=== PATIENT | male | born 1965 | race Caucasian/White ===

== ENCOUNTER 2016-06-24 20:59 | Emergency (ER) | payer BC ==
[2016-06-24] MEDS ORDERED: ACETAMINOPHEN/CODEINE #3 TABLET (BULK) As Ordered ONE (22:54)
--- NOTE | 2016-06-24 23:05 | EDDOCDS ---
Nurse's Notes [facility] Name: Gagandeep Quesada Age: 50 yrs Sex: Male : 1965 Arrival Date: 06/24/2016 Time: 20:59 Bed PR Private MD: Alex Fuller A. Diagnosis: Intercostal pain;Cough Presentation: 06/24 21:04 Presenting complaint: Patient states: left lung pain, aggravated by coughing x 1 week. af2 Adult Sepsis Screening: The patient does not have new or worsening altered mentation. Patient's respiratory rate is less than 22. Systolic blood pressure is greater than 100. Patient has a qSOFA score of 0- Negative Sepsis Screen. Suicide/Homicide risk assessment- the patient denies having any suicidal and/or homicidal ideations and does not present with any other emotional, behavioral or mental health complaints. Status: Patient is not a director dental services or dependent. Transition of care: patient was not received from another setting of care. 21:04 Acuity: JUSTIN Level 4 af2 21:04 Method Of Arrival: Walkin/Carried/Asstd af2 Triage Assessment: 21:06 General: Appears in no apparent distress, Behavior is cooperative. Pain: Location: Left af2 lung Pain currently is 8 out of 10 on a pain scale. Pt Declines HIV testing. Respiratory: Airway is patent Respiratory effort is even, unlabored, Reports cough that is non-productive. Historical: - Allergies: No known drug Allergies; - Home Meds: 1. Unknown - PMHx: none; - PSHx: Appendectomy; Hernia repair- Left inguinal; Hernia repair- Right inguinal; - Social history: Smoking status: Patient states was never smoker of tobacco. No barriers to communication noted, The patient speaks fluent Yoruba. - Family history: No immediate family members are acutely ill. - : The pt / caregiver states he / she is not on anticoagulants. Home medication list is obtained from the patient. - Exposure Risk Screening:: None identified. Screenin:01 Screening information is obtained from the patient. Fall risk: No risks identified. kmg1 Assistance ADL's: requires no assistance with activities of daily living. Abuse/DV Screen: The patient / caregiver reports he/she is: not in a situation that causes fear, pain or injury. Nutritional screening: No deficits noted. Advance Directives: There is no active DNR order. home support is adequate. Assessment: 23:01 General: Appears in no apparent distress, comfortable, Behavior is appropriate for age, kmg1 cooperative, pleasant. Pain: Location: ribs Pain currently is 7 out of 10 on a pain scale. Quality of pain is described as sharp. Respiratory: Airway is patent Respiratory effort is even, unlabored, Respiratory pattern is regular, symmetrical, Reports cough that is pain with cough. Vital Signs: 21:01 BP 143 / 90; Pulse 82; Resp 18; Pulse Ox 98% ; Weight 68.04 kg; Height 5 ft. 5 in. elp (165.10 cm); Pain 8/10; 22:37 BP 140 / 93 LA Sitting (auto/reg); Pulse 83 MON; Resp 20 S; Temp 97.6(TE); Pulse Ox 98% cln on R/A; Pain 7/10; 21:01 Body Mass Index 24.96 (68.04 kg, 165.10 cm) elp Vitals: 21: Log In Time: June 24, 2016 at 21:00. elp ED Course: 21:01 Patient visited by Lisa Henning PCA. elp 21:01 Alex Fuller is Private Physician. elp 21:01 Patient moved to Waiting elp 21:03 Patient visited by Lisa Henning PCA. elp 21:03 Patient moved to Pre RCE elp 21:04 Triage Initiated af2 21:07 Patient visited by Luana Lagunas RN. af2 21:13 Patient moved to Triage 2 kmg1 21:51 [facility] cc10 21:51 Ross Painter DO is Attending Physician. cc10 21:51 Patient visited by Massimo Rodriguez PA-C. cc10 21:51 Patient visited by Massimo Rodriguez PA-C. cc10 22:03 Patient moved to TR1 mb9 22:23 [facility] Payment Agreement was scanned into [employer] and attached to record. gjb 22:33 Patient moved to PR1 / 25 cln 22:38 Patient visited by Jazzmine Easton PCA. cln 22:44 Alex Fuller is Referral Physician. cc10 23:01 The patient / caregiver is instructed regarding the plan of care and ED course. kmg1 23:01 No IV's were initiated during this patient's visit. No procedures done that require kmg1 assistance. Order Results: There are currently no results for this order. Outcome: 22:44 Discharge ordered by Provider. cc10 23:01 Discharge Assessment: Patient awake, alert and oriented x 3. No cognitive and/or kmg1 functional deficits noted. Patient verbalized understanding of disposition instructions. Patient awake and alert. patient administered narcotics - no. The following High Risk Discharge criteria are identified: None. Discharged to home ambulatory. Condition: stable. Discharge instructions given to patient, Instructed on discharge instructions, follow up and referral plans. medication usage, no driving heavy equipment, Demonstrated understanding of instructions, medications, Pt was receptive of discharge instructions/ teaching. Prescriptions given X 2. No special radiology studies were completed. Property sent home with patient. 23:04 Patient left the ED. km Signatures: Dilcia Carvalho, RN RN kmg1 Lisa Henning, HYDRAULIC CONTROLS TECHNICIAN HYDRAULIC CONTROLS TECHNICIAN elp Massimo Rodriguez, PA-C PA-C cc10 Reuben Person,RN RN mb9 Luana Lagunas,RN RN af2 Traci Hooks Crystal, HYDRAULIC CONTROLS TECHNICIAN HYDRAULIC CONTROLS TECHNICIAN cln [facility]PITALBrittaney
--- NOTE | 2016-06-24 23:05 | EDDOCDS ---
Physician Documentation [facility] Name: Gagandeep Quesada Age: 50 yrs Sex: Male : 1965 Arrival Date: 06/24/2016 Time: 20:59 Bed PR Private MD: Alex Fuller A. Disposition: 06/24/16 22:44 Discharged to Home/Self Care. Impression: Intercostal pain, Cough. - Condition is Stable. - Discharge Instructions: Costochondritis, Cough, Adult. - Prescriptions for Cheratussin AC 10- 100 mg/5 mL Oral liquid - take 10 milliliter by ORAL route every 6 hours As needed MDD: 40 ML; 200 milliliter. Naprosyn 500 mg Oral Tablet - take 1 tablet by ORAL route 2 times per day take with food; 30 tablet. - Medication Reconciliation, Local Pharmacy Hours form. - Follow up: Emergency Department; When: As needed; Reason: Worsening of conditions. Follow up: Alex Fuller; When: 2 - 3 days; Reason: Wound/Symptom Recheck, Recheck today's complaints, Worsening of conditions, Continuance of care. - Problem is an ongoing problem. - Symptoms are unchanged. Historical: - Allergies: No known drug Allergies; - Home Meds: 1. Unknown - PMHx: none; - PSHx: Appendectomy; Hernia repair- Left inguinal; Hernia repair- Right inguinal; - Social history: Smoking status: Patient states was never smoker of tobacco. No barriers to communication noted, The patient speaks fluent Maori. - Family history: No immediate family members are acutely ill. - : The pt / caregiver states he / she is not on anticoagulants. Home medication list is obtained from the patient. - Exposure Risk Screening:: None identified. Vital Signs: 06/24 21:01 BP 143 / 90; Pulse 82; Resp 18; Pulse Ox 98% ; Weight 68.04 kg / 150 lbs; Height 5 ft. elp 5 in. (165.10 cm); Pain 8/10; 22:37 BP 140 / 93 LA Sitting (auto/reg); Pulse 83 MON; Resp 20 S; Temp 97.6(TE); Pulse Ox 98% cln on R/A; Pain 7/10; 21:01 Body Mass Index 24.96 (68.04 kg, 165.10 cm) elp MDM: 21:58 Chest, 2 View (pa\E\lat) Ordered. EDMS 22:23 [facility] Payment Agreement was scanned into [employer] and attached to record. lin 22:23 Financial registration complete. gjdenise 22:43 Acetaminophen-Codeine, 4 pack- 300 mg-30 mg 1 packets PO once; Dispense with patient. cc10 Take per package instructions. ordered. Signatures: Dispatcher [employer] EDMS Dilcia Carvalho, RN RN kmg1 Massimo Rodriguez, PA-C PA-C cc10 Luana LagunasRN RN af2 Traci Hooks The chart was reviewed and I authenticate all verbal orders and agree with the evaluation and treatment provided.Attachments: 22:23 [facility] Payment Agreement lin MTDD
--- NOTE | 2016-06-25 08:41 | REP ---
Clinical: Cough . Comparison: Technique: PA and lateral. Findings: The mediastinum and cardiac silhouette are normal. The lung portillo are clear and without acute consolidation, effusion, or pneumothorax. The skeletal structures are intact and normal. Impression: 1. No acute cardiopulmonary process. Signed by Marcus Whitman MD 06/25/2016 08:32 A
--- NOTE | 2016-06-27 00:05 | EDDOCDS ---
Physician Documentation [facility] Name: Gagandeep Quesada Age: 50 yrs Sex: Male : 1965 Arrival Date: 06/24/2016 Time: 20:59 Bed PR Private MD: Alex Fuller A. Disposition: 06/24/16 22:44 Discharged to Home/Self Care. Impression: Intercostal pain, Cough. - Condition is Stable. - Discharge Instructions: Costochondritis, Cough, Adult. - Prescriptions for Cheratussin AC 10- 100 mg/5 mL Oral liquid - take 10 milliliter by ORAL route every 6 hours As needed MDD: 40 ML; 200 milliliter. Naprosyn 500 mg Oral Tablet - take 1 tablet by ORAL route 2 times per day take with food; 30 tablet. - Medication Reconciliation, Local Pharmacy Hours form. - Follow up: Emergency Department; When: As needed; Reason: Worsening of conditions. Follow up: Alex Fuller; When: 2 - 3 days; Reason: Wound/Symptom Recheck, Recheck today's complaints, Worsening of conditions, Continuance of care. - Problem is an ongoing problem. - Symptoms are unchanged. Historical: - Allergies: No known drug Allergies; - Home Meds: 1. Unknown - PMHx: none; - PSHx: Appendectomy; Hernia repair- Left inguinal; Hernia repair- Right inguinal; - Social history: Smoking status: Patient states was never smoker of tobacco. No barriers to communication noted, The patient speaks fluent Uzbek. - Family history: No immediate family members are acutely ill. - : The pt / caregiver states he / she is not on anticoagulants. Home medication list is obtained from the patient. - Exposure Risk Screening:: None identified. Vital Signs: 06/24 21:01 BP 143 / 90; Pulse 82; Resp 18; Pulse Ox 98% ; Weight 68.04 kg / 150 lbs; Height 5 ft. elp 5 in. (165.10 cm); Pain 8/10; 22:37 BP 140 / 93 LA Sitting (auto/reg); Pulse 83 MON; Resp 20 S; Temp 97.6(TE); Pulse Ox 98% cln on R/A; Pain 7/10; 21:01 Body Mass Index 24.96 (68.04 kg, 165.10 cm) elp MDM: 21:58 Chest, 2 View (pa\E\lat) Ordered. EDMS 22:23 [facility] Payment Agreement was scanned into [employer] and attached to record. gjb 22:23 Financial registration complete. gjb 22:43 Acetaminophen-Codeine, 4 pack- 300 mg-30 mg 1 packets PO once; Dispense with patient. cc10 Take per package instructions. ordered. 06/25 11:20 T-Sheet-- Draft Copy was scanned into [employer] and attached to record. gb Administered Medications: 06/24 22:55 Drug: Acetaminophen-Codeine, 4 pack- 1 packets [acetaminophen 300 mg-codeine 30 mg kmg1 tablet (1 tabs)] {Co-Signature: af2 (Luana Lagunas RN).} Route: PO; Signatures: Dispatcher [employer] EDMS Dilcia Carvalho, RN RN kmg1 Ade Eason, Reg Reg gb Massimo Rodriguez, PA-C PA-C cc10 Luana Lagunas RN RN af2 Traci Hooks [facility] Luana Lagunas RN af2 The chart was reviewed and I authenticate all verbal orders and agree with the evaluation and treatment provided.Attachments: 22:23 [facility] Payment Agreement b 06/25 11:20 T-Sheet-- Draft Copy gb Chart Complete MTDD
--- NOTE | 2016-06-27 00:05 | EDDOCDS ---
Physician Documentation [facility] Name: Gagandeep Quesada Age: 50 yrs Sex: Male : 1965 Arrival Date: 06/24/2016 Time: 20:59 Bed PR Private MD: Alex Fuller A. Disposition: 06/24/16 22:44 Discharged to Home/Self Care. Impression: Intercostal pain, Cough. - Condition is Stable. - Discharge Instructions: Costochondritis, Cough, Adult. - Prescriptions for Cheratussin AC 10- 100 mg/5 mL Oral liquid - take 10 milliliter by ORAL route every 6 hours As needed MDD: 40 ML; 200 milliliter. Naprosyn 500 mg Oral Tablet - take 1 tablet by ORAL route 2 times per day take with food; 30 tablet. - Medication Reconciliation, Local Pharmacy Hours form. - Follow up: Emergency Department; When: As needed; Reason: Worsening of conditions. Follow up: Alex Fuller; When: 2 - 3 days; Reason: Wound/Symptom Recheck, Recheck today's complaints, Worsening of conditions, Continuance of care. - Problem is an ongoing problem. - Symptoms are unchanged. Historical: - Allergies: No known drug Allergies; - Home Meds: 1. Unknown - PMHx: none; - PSHx: Appendectomy; Hernia repair- Left inguinal; Hernia repair- Right inguinal; - Social history: Smoking status: Patient states was never smoker of tobacco. No barriers to communication noted, The patient speaks fluent Pashto. - Family history: No immediate family members are acutely ill. - : The pt / caregiver states he / she is not on anticoagulants. Home medication list is obtained from the patient. - Exposure Risk Screening:: None identified. Vital Signs: 06/24 21:01 BP 143 / 90; Pulse 82; Resp 18; Pulse Ox 98% ; Weight 68.04 kg / 150 lbs; Height 5 ft. elp 5 in. (165.10 cm); Pain 8/10; 22:37 BP 140 / 93 LA Sitting (auto/reg); Pulse 83 MON; Resp 20 S; Temp 97.6(TE); Pulse Ox 98% cln on R/A; Pain 7/10; 21:01 Body Mass Index 24.96 (68.04 kg, 165.10 cm) elp MDM: 21:58 Chest, 2 View (pa\E\lat) Ordered. EDMS 22:23 [facility] Payment Agreement was scanned into [employer] and attached to record. gjb 22:23 Financial registration complete. gjb 22:43 Acetaminophen-Codeine, 4 pack- 300 mg-30 mg 1 packets PO once; Dispense with patient. cc10 Take per package instructions. ordered. 06/25 11:20 T-Sheet-- Draft Copy was scanned into [employer] and attached to record. gb Administered Medications: 06/24 22:55 Drug: Acetaminophen-Codeine, 4 pack- 1 packets [acetaminophen 300 mg-codeine 30 mg kmg1 tablet (1 tabs)] {Co-Signature: af2 (Luana Lagunas RN).} Route: PO; Signatures: Dispatcher [employer] EDMS Dilcia Carvalho, RN RN kmg1 Ade Eason, Reg Reg gb Massimo Rodriguez, PA-C PA-C cc10 Luana Lagunas RN RN af2 Traci Hooks [facility] Luana Lagunas RN af2 The chart was reviewed and I authenticate all verbal orders and agree with the evaluation and treatment provided.Attachments: 22:23 [facility] Payment Agreement b 06/25 11:20 T-Sheet-- Draft Copy gb Chart Complete MTDD
--- NOTE | 2016-06-27 00:05 | EDDOCDS ---
Nurse's Notes [facility] Name: Gagandeep Quesada Age: 50 yrs Sex: Male : 1965 Arrival Date: 06/24/2016 Time: 20:59 Bed PR Private MD: Alex Fuller A. Diagnosis: Intercostal pain;Cough Presentation: 06/24 21:04 Presenting complaint: Patient states: left lung pain, aggravated by coughing x 1 week. af2 Adult Sepsis Screening: The patient does not have new or worsening altered mentation. Patient's respiratory rate is less than 22. Systolic blood pressure is greater than 100. Patient has a qSOFA score of 0- Negative Sepsis Screen. Suicide/Homicide risk assessment- the patient denies having any suicidal and/or homicidal ideations and does not present with any other emotional, behavioral or mental health complaints. Status: Patient is not a tire servicer or dependent. Transition of care: patient was not received from another setting of care. 21:04 Acuity: JUSTIN Level 4 af2 21:04 Method Of Arrival: Walkin/Carried/Asstd af2 Triage Assessment: 21:06 General: Appears in no apparent distress, Behavior is cooperative. Pain: Location: Left af2 lung Pain currently is 8 out of 10 on a pain scale. Pt Declines HIV testing. Respiratory: Airway is patent Respiratory effort is even, unlabored, Reports cough that is non-productive. Historical: - Allergies: No known drug Allergies; - Home Meds: 1. Unknown - PMHx: none; - PSHx: Appendectomy; Hernia repair- Left inguinal; Hernia repair- Right inguinal; - Social history: Smoking status: Patient states was never smoker of tobacco. No barriers to communication noted, The patient speaks fluent Arabic. - Family history: No immediate family members are acutely ill. - : The pt / caregiver states he / she is not on anticoagulants. Home medication list is obtained from the patient. - Exposure Risk Screening:: None identified. Screenin:01 Screening information is obtained from the patient. Fall risk: No risks identified. kmg1 Assistance ADL's: requires no assistance with activities of daily living. Abuse/DV Screen: The patient / caregiver reports he/she is: not in a situation that causes fear, pain or injury. Nutritional screening: No deficits noted. Advance Directives: There is no active DNR order. home support is adequate. Assessment: 23:01 General: Appears in no apparent distress, comfortable, Behavior is appropriate for age, kmg1 cooperative, pleasant. Pain: Location: ribs Pain currently is 7 out of 10 on a pain scale. Quality of pain is described as sharp. Respiratory: Airway is patent Respiratory effort is even, unlabored, Respiratory pattern is regular, symmetrical, Reports cough that is pain with cough. Vital Signs: 21:01 BP 143 / 90; Pulse 82; Resp 18; Pulse Ox 98% ; Weight 68.04 kg; Height 5 ft. 5 in. elp (165.10 cm); Pain 8/10; 22:37 BP 140 / 93 LA Sitting (auto/reg); Pulse 83 MON; Resp 20 S; Temp 97.6(TE); Pulse Ox 98% cln on R/A; Pain 7/10; 21:01 Body Mass Index 24.96 (68.04 kg, 165.10 cm) elp Vitals: 21: Log In Time: June 24, 2016 at 21:00. elp ED Course: 21:01 Patient visited by Lisa Henning PCA. elp 21:01 Alex Fuller is Private Physician. elp 21:01 Patient moved to Waiting elp 21:03 Patient visited by Lisa Henning PCA. elp 21:03 Patient moved to Pre RCE elp 21:04 Triage Initiated af2 21:07 Patient visited by Luana Lagunas RN. af2 21:13 Patient moved to Triage 2 kmg1 21:51 Massimo [facility] cc10 21:51 Ross Painter DO is Attending Physician. cc10 21:51 Patient visited by Massimo Rodriguez PA-C. cc10 21:51 Patient visited by Massimo Rodriguez PA-C. cc10 22:03 Patient moved to TR1 mb9 22:23 [facility] Payment Agreement was scanned into [employer] and attached to record. gjb 22:33 Patient moved to PR1 / 25 cln 22:38 Patient visited by Jazzmine Easton PCA. cln 22:44 Alex Fuller is Referral Physician. cc10 23:01 The patient / caregiver is instructed regarding the plan of care and ED course. kmg1 23:01 No IV's were initiated during this patient's visit. No procedures done that require km assistance. 06/25 09:00 Chest, 2 View (pa\E\lat) Returned. EDMN 11:20 T-Sheet-- Draft Copy was scanned into [employer] and attached to record. gb Administered Medications: 06/24 22:55 Drug: Acetaminophen-Codeine, 4 pack- 1 packets [acetaminophen 300 mg-codeine 30 mg kmg1 tablet (1 tabs)] {Co-Signature: af2 (Luana Lagunas RN).} Route: PO; Order Results: Radiology Order: Chest, 2 View (pa\E\lat) Test: Chest, 2 View (pa\E\lat) REASON FOR EXAMINATION: Cough; Clinical: Cough .; ; Comparison: ; ; Technique: PA and lateral.; ; Findings:; The mediastinum and cardiac silhouette are normal. The lung portillo are clear and; without acute consolidation, effusion, or pneumothorax. The skeletal structures; are intact and normal.; ; Impression:; 1. No acute cardiopulmonary process.; ; ; Signed by; Marcus Whitman MD 06/25/2016 08:32 A; Outcome: 22:44 Discharge ordered by Provider. cc10 23:01 Discharge Assessment: Patient awake, alert and oriented x 3. No cognitive and/or kmg1 functional deficits noted. Patient verbalized understanding of disposition instructions. Patient awake and alert. patient administered narcotics - no. The following High Risk Discharge criteria are identified: None. Discharged to home ambulatory. Condition: stable. Discharge instructions given to patient, Instructed on discharge instructions, follow up and referral plans. medication usage, no driving heavy equipment, Demonstrated understanding of instructions, medications, Pt was receptive of discharge instructions/ teaching. Prescriptions given X 2. No special radiology studies were completed. Property sent home with patient. 23:04 [place] [facility] [place] Signatures: [facility] Dilcia Carvalho, RN RN kmg1 Ade Eason, Reg Reg gb Patchen, Lisa, HOSPICE ENTRANCE ATTENDANT HOSPICE ENTRANCE ATTENDANT elp Massimo Rodriguez, PA-C PA-C cc10 Reuben Person RN RN mb9 Luana Lagunas RN RN af2 Traci Hooks Crystal, HOSPICE ENTRANCE ATTENDANT HOSPICE ENTRANCE ATTENDANT cln Luana Lagunas RN af2 Chart Complete MTDD
== END 2016-06-24 23:04 | disposition home or self-care (01) ==
LOC: M ED 20:59
DX: R07.89 Other chest pain (principal); R05 Cough

== ENCOUNTER → 2017-01-11 | Outpatient (CLI) | payer BC, SELFPAY ==
[~2017-01-11] VITALS: Ht 165.1 cm; Wt 70.3 kg
[~2017-01-11] MED LIST: LIDOCAINE 2% INJ 100 MG/5 ML SDV (FOR ANES.) As Ordered ONE; MULT1TAB10 PO; NS 1,000 ML IV ONE; PROPOFOL 500 MG/50 ML VIAL As Ordered ONE
--- NOTE | 2017-01-11 13:54 | ROOR ---
Patient Name: Gagandeep Quesada Procedure Date: 01/11/2017 1:32 PM Date of : 1965 Age: 51 Room: [facility] Gender: Male Note Status: Finalized Procedure: Total Colonoscopy to cecum + Biopsy Polypectomy Indications: Screening for colorectal malignant neoplasm Providers: Schuyler Benavides MD Referring MD: Alex Fuller MD Requesting Provider: Medicines: Monitored Anesthesia Care Complications: No immediate complications. Procedure: Pre-Anesthesia Assessment: - The heart rate, respiratory rate, oxygen saturations, blood pressure, adequacy of pulmonary ventilation, and response to care were monitored throughout the procedure. The Colonoscope was introduced through the anus and advanced to the cecum, identified by appendiceal orifice and ileocecal valve. The colonoscopy was performed without difficulty. The patient tolerated the procedure well. The quality of the bowel preparation was excellent. Findings: The perianal and digital rectal examinations were normal. Non-bleeding internal hemorrhoids were found during retroflexion. The hemorrhoids were small and Grade I (internal hemorrhoids that do not prolapse). Scattered small-mouthed diverticula were found in the recto-sigmoid colon, sigmoid colon and descending colon. A diminutive polyp was found at 20 cm proximal to the anus. The polyp was sessile. The polyp was removed with a cold biopsy forceps. Resection and retrieval were complete. The exam was otherwise without abnormality on direct and retroflexion views. Impression: - Non-bleeding internal hemorrhoids. - Diverticulosis in the recto-sigmoid colon, in the sigmoid colon and in the descending colon. - One diminutive polyp at 20 cm proximal to the anus, removed with a cold biopsy forceps. Resected and retrieved. - The examination was otherwise normal on direct and retroflexion views. - The exam was otherwise normal to the cecum. Recommendation: - Patient has a contact number available for emergencies. The signs and symptoms of potential delayed complications were discussed with the patient. Return to normal activities tomorrow. Written discharge instructions were provided to the patient. - High fiber diet. - Discharge patient to home. - Continue present medications. - Await pathology results. - Telephone GI clinic for pathology results in 1 week. - Repeat colonoscopy in 10 years for surveillance based on pathology results. - Return to referring physician. - The findings and recommendations were discussed with the patient's family. Schuyler Benavides MD Schuyler Benavides MD 01/11/2017 1:53:57 PM This report has been signed electronically. Number of Addenda: 0 Note Initiated On: 01/11/2017 1:32 PM Estimated Blood Loss: Estimated blood loss: none.
[2017-01-11 14:13] VITALS: BP 116/76
== END | disposition home or self-care (01) ==
LOC: M OPP 11:51
PROVIDERS: ATTEND Internal Medicine Gastroenterology
DX: Z12.11 Encounter for screening for malignant neoplasm of colon (principal); D12.5 Benign neoplasm of sigmoid colon; K64.0 First degree hemorrhoids; K57.30 Diverticulosis of large intestine without perforation or abscess without bleeding; Z80.0 Family history of malignant neoplasm of digestive organs; Z80.41 Family history of malignant neoplasm of ovary

== ENCOUNTER → 2020-05-24 | Outpatient (CLI) | payer BC ==
[~2020-05-24] MED LIST changes: -LIDOCAINE 2% INJ 100 MG/5 ML SDV (FOR ANES.) As Ordered ONE; -NS 1,000 ML IV ONE; -PROPOFOL 500 MG/50 ML VIAL As Ordered ONE
[2020-05-24 10:49] LABS: CHOLESTEROL RISK RATIO 5.674 (<5)
[2020-05-24 10:55] LABS: TOTAL 25(OH) VITAMIN D 33.9 NG/ML (30.0-100.0)
== END ==
LOC: M PLALAB 08:57
PROVIDERS: ATTEND Family Medicine
DX: Z12.5 Encounter for screening for malignant neoplasm of prostate (principal); Z79.899 Other long term (current) drug therapy

== ENCOUNTER → 2021-01-20 | Outpatient (CLI) | payer BC ==
--- NOTE | 2021-01-20 16:11 | REP ---
INDICATION: STRAIN. COMPARISON: None. TECHNIQUE: Three views sacrum and coccyx. FINDINGS: There is no evidence of acute fracture, dislocation or intrinsic bone disease. Metallic clips overlie the pelvis. IMPRESSION: No fracture or dislocation. <Electronically signed by Eric Shannon > 01/20/21 [id number]
--- NOTE | 2021-01-20 16:25 | REP ---
INDICATION: STRAIN. COMPARISON: None. TECHNIQUE: Five views lumbosacral spine. FINDINGS: There is no compression fracture or malalignment. There is normal lumbar lordosis. Disc spaces are well preserved. Posterior elements are intact. Metallic clips overlie the pelvis. There is mild sclerosis at the facet joints of L5-S1. IMPRESSION: Mild sclerosis of the facet joints of L5-S1. <Electronically signed by Eric Shannon > 01/20/21 [id number]
== END ==
LOC: M WUC 14:47
PROVIDERS: ATTEND Physician Assistant
DX: S39.012A Strain of muscle, fascia and tendon of lower back, initial encounter (principal); X58.XXXA Exposure to other specified factors, initial encounter; Y92.9 Unspecified place or not applicable; Y99.9 Unspecified external cause status; Y93.9 Activity, unspecified

== ENCOUNTER 2021-06-25 07:09 | Emergency (ER) | payer BC ==
[~2021-06-25] VITALS: Ht 165.1 cm; Wt 68.2 kg
[2021-06-25 07:10] VITALS: BP 153/99
[2021-06-25] MEDS ORDERED: IBUP80TA PO (09:18)
== END 2021-06-25 09:39 | disposition home or self-care (01) ==
LOC: M ED 07:09
DX: S93.402A Sprain of unspecified ligament of left ankle, initial encounter (principal); W19.XXXA Unspecified fall, initial encounter; Y92.89 Other specified places as the place of occurrence of the external cause; Y93.66 Activity, soccer

== ENCOUNTER → 2022-06-29 | Outpatient (CLI) | payer BC ==
[~2022-06-29] MED LIST changes: +IBUP80TA PO
[2022-06-29 15:23] LABS: BASO # 0.1 10^3/uL (0.0-0.2); BASO % 0.8 % (0.0-1.0); EOS # 0.1 10^3/uL (0.0-0.5); EOS % 2.2 % (0.0-3.0); HEMATOCRIT 45.7 % (42.0-52.0); HEMOGLOBIN 15.7 g/dl (13.5-17.5); LYMPH # 1.9 10^3/uL (1.5-5.0); LYMPH % 30.4 % (24.0-44.0); MEAN CORPUSCULAR HEMOGLOBIN 32.1 pg (27.0-33.0); MEAN CORPUSCULAR HGB CONC 34.4 g/dl (32.0-36.5); MEAN CORPUSCULAR VOLUME 93.5 fl (80.0-96.0); MONO # 0.8 10^3/uL (0.0-0.8); MONO % 12.6 % (2.0-8.0); NEUTROPHILS # 3.4 10^3/uL (1.5-8.5); NEUTROPHILS % 53.7 % (36.0-66.0); PLATELET COUNT, AUTOMATED 236 10^3/uL (150-450); RED BLOOD COUNT 4.89 10^6/uL (4.30-6.10); WHITE BLOOD COUNT 6.4 10^3/uL (4.0-10.0)
[2022-06-29 15:47] LABS: BILIRUBIN,DIRECT 0.2 MG/DL (<0.4)
[2022-06-29 15:48] LABS: ALBUMIN 4.2 G/DL (3.2-5.2); ALKALINE PHOSPHATASE 70 U/L (46-116); ALT/SGPT 37 U/L (7.0-40); AST/SGOT 21 U/L (<34); BILIRUBIN,TOTAL 0.7 MG/DL (0.3-1.2); BLOOD UREA NITROGEN 19 MG/DL (9-23); CALCIUM LEVEL 9.8 MG/DL (8.5-10.1); CARBON DIOXIDE LEVEL 29 MMOL/L (20-31); CHLORIDE LEVEL 104 MMOL/L (98-107); CHOLESTEROL LEVEL 261 MG/DL (<200); CREATININE FOR GFR 0.85 MG/DL (0.70-1.30); GLOMERULAR FILTRATION RATE > 60.0 (>56); GLUCOSE, FASTING 78 MG/DL (60-100); HDL CHOLESTEROL 43.5 MG/DL (>40); LDL CHOLESTEROL 162.7 MG/DL (<100); NON-HDL-C 218 MG/DL; POTASSIUM SERUM 4.9 MMOL/L (3.5-5.1); SODIUM LEVEL 140 MMOL/L (136-145); TOTAL PROTEIN 6.7 G/DL (5.7-8.2); TRIGLYCERIDES LEVEL 274 MG/DL (<150)
== END ==
LOC: M PLALAB 12:29
PROVIDERS: ATTEND Dermatology
DX: L40.4 Guttate psoriasis (principal)

== ENCOUNTER → 2022-09-19 | Outpatient (CLI) | payer BC ==
[2022-09-19 14:44] LABS: BASO # 0.1 10^3/uL (0.0-0.2); EOS # 0.1 10^3/uL (0.0-0.5); EOS % 1.7 % (0.0-3.0); HEMATOCRIT 48.8 % (42.0-52.0); HEMOGLOBIN 16.1 g/dl (13.5-17.5); LYMPH # 1.6 10^3/uL (1.5-5.0); LYMPH % 27.2 % (24.0-44.0); MEAN CORPUSCULAR HEMOGLOBIN 31.8 pg (27.0-33.0); MEAN CORPUSCULAR VOLUME 96.3 fl (80.0-96.0); MONO # 0.5 10^3/uL (0.0-0.8); MONO % 8.9 % (2.0-8.0); NEUTROPHILS # 3.6 10^3/uL (1.5-8.5); NEUTROPHILS % 60.9 % (36.0-66.0); PLATELET COUNT, AUTOMATED 265 10^3/uL (150-450); RED BLOOD COUNT 5.07 10^6/uL (4.30-6.10); WHITE BLOOD COUNT 5.9 10^3/uL (4.0-10.0)
[2022-09-19 14:56] LABS: ALBUMIN 4.1 G/DL (3.2-5.2); ALKALINE PHOSPHATASE 69 U/L (46-116); ALT/SGPT 35 U/L (7.0-40); AST/SGOT 21 U/L (<34); BILIRUBIN,TOTAL 0.8 MG/DL (0.3-1.2); BLOOD UREA NITROGEN 19 MG/DL (9-23); CALCIUM LEVEL 9.4 MG/DL (8.5-10.1); CARBON DIOXIDE LEVEL 29 MMOL/L (20-31); CHLORIDE LEVEL 104 MMOL/L (98-107); CHOLESTEROL LEVEL 277 MG/DL (<200); CHOLESTEROL RISK RATIO 5.93 (<5); GLOMERULAR FILTRATION RATE > 60.0 (>56); GLUCOSE, FASTING 90 MG/DL (60-100); HDL CHOLESTEROL 46.7 MG/DL (>40); LDL CHOLESTEROL 170.5 MG/DL (<100); NON-HDL-C 230.3 MG/DL; POTASSIUM SERUM 4.5 MMOL/L (3.5-5.1); SODIUM LEVEL 141 MMOL/L (136-145); TOTAL PROTEIN 6.9 G/DL (5.7-8.2); TRIGLYCERIDES LEVEL 299 MG/DL (<150)
== END ==
LOC: M PLALAB 09:52
PROVIDERS: ATTEND Dermatology
DX: L66.8 Other cicatricial alopecia (principal); L66.1 Lichen planopilaris; Z71.89 Other specified counseling

== ENCOUNTER → 2023-06-24 | Outpatient (CLI) | payer BC, SELFPAY ==
[2023-06-24 17:44] LABS: BASO # 0.1 10^3/uL (0.0-0.2); BASO % 0.7 % (0.0-1.0); EOS # 0.1 10^3/uL (0.0-0.5); EOS % 1.5 % (0.0-3.0); HEMATOCRIT 44.7 % (42.0-52.0); LYMPH # 1.4 10^3/uL (1.5-5.0); MEAN CORPUSCULAR HEMOGLOBIN 32.3 pg (27.0-33.0); MEAN CORPUSCULAR HGB CONC 33.6 g/dl (32.0-36.5); MEAN CORPUSCULAR VOLUME 96.3 fl (80.0-96.0); MONO # 0.7 10^3/uL (0.0-0.8); MONO % 10.5 % (2.0-8.0); NEUTROPHILS # 4.5 10^3/uL (1.5-8.5); PLATELET COUNT, AUTOMATED 231 10^3/uL (150-450); RED BLOOD COUNT 4.64 10^6/uL (4.30-6.10); WHITE BLOOD COUNT 6.8 10^3/uL (4.0-10.0)
[2023-06-24 17:55] LABS: ALBUMIN 3.8 G/DL (3.2-5.2); ALKALINE PHOSPHATASE 72 U/L (46-116); ALT/SGPT 26 U/L (7.0-40); AST/SGOT 15 U/L (<34); BILIRUBIN,TOTAL 0.5 MG/DL (0.3-1.2); BLOOD UREA NITROGEN 25 MG/DL (9-23); CARBON DIOXIDE LEVEL 32 MMOL/L (20-31); CHLORIDE LEVEL 105 MMOL/L (98-107); CHOLESTEROL LEVEL 226 MG/DL (<200); CHOLESTEROL RISK RATIO 4.45 (<5); CREATININE FOR GFR 1.14 MG/DL (0.70-1.30); GLOMERULAR FILTRATION RATE > 60.0 (>56); GLUCOSE, FASTING 83 MG/DL (60-100); HDL CHOLESTEROL 50.7 MG/DL (>40); LDL CHOLESTEROL 143.1 MG/DL (<100); NON-HDL-C 175.3 MG/DL; POTASSIUM SERUM 4.2 MMOL/L (3.5-5.1); SODIUM LEVEL 141 MMOL/L (136-145); TOTAL PROTEIN 6.3 G/DL (5.7-8.2); TRIGLYCERIDES LEVEL 161 MG/DL (<150)
== END ==
LOC: M PLALAB 16:11
PROVIDERS: ATTEND Dermatology
DX: L66.8 Other cicatricial alopecia (principal); L66.1 Lichen planopilaris; L63.8 Other alopecia areata; Z71.89 Other specified counseling

== ENCOUNTER → 2023-07-09 | Outpatient (CLI) | payer BC | LOC: M WUC 09:19 | PROVIDERS: ATTEND Nurse Practitioner Family | DX: M79.641 Pain in right hand (principal); M19.041 Primary osteoarthritis, right hand ==

== ENCOUNTER → 2023-07-31 | Outpatient (CLI) | payer BC | LOC: M SOG 07:58 | PROVIDERS: ATTEND Physician Assistant | DX: M79.641 Pain in right hand (principal); M25.531 Pain in right wrist; R93.6 Abnormal findings on diagnostic imaging of limbs ==

== ENCOUNTER → 2023-11-12 | Outpatient (CLI) | payer BC, SELFPAY | LOC: M RAD 09:04 | PROVIDERS: ATTEND Physician Assistant | DX: M25.531 Pain in right wrist (principal); M85.431 Solitary bone cyst, right ulna and radius; R93.6 Abnormal findings on diagnostic imaging of limbs ==